=== PATIENT | female | born 1960 | race American Indian/Alaskan Native ===

== ENCOUNTER 2016-11-21 13:18 | Outpatient (CLI) | payer BC ==
--- NOTE | 2016-11-22 11:36 | Mammography Report ---
BILATERAL DIGITAL SCREENING MAMMOGRAM with CAD: 11/21/16 13:18:00 CLINICAL: Routine screening. COMPARISON:11/17/15 FINDINGS: The breasts are almost entirely fatty. No mass, architectural distortion or suspicious calcifications. IMPRESSION: No mammographic evidence of malignancy. BI-RADS CATEGORY: 1 - - Negative RECOMMENDATION: Routine mammographic screening in one year. COMMENT: Patient follow-up letters are generated by our [employer] application.
== END 2016-11-21 13:19 | disposition home or self-care (01) ==
LOC: SPVWC 13:18
PROVIDERS: ATTEND Obstetrics & Gynecology
DX: Z12.31 Encounter for screening mammogram for malignant neoplasm of breast (principal)
CPT/HCPCS: 77067; G0202

== ENCOUNTER 2017-01-14 11:25 | Outpatient (CLI) | payer BC ==
--- NOTE | 2017-01-14 12:17 | XRay Report ---
PA and lateral chest: Focal atelectasis is present at the left base. Lungs otherwise appear generally clear and unremarkable. The mediastinal contour is grossly normal except for a mildly tortuous thoracic aorta. Except for mild thoracic spondylosis the bony and soft tissue structures are unremarkable. Impression: Normal study for age.
== END 2017-01-14 11:26 | disposition home or self-care (01) ==
LOC: XRAY 11:25
PROVIDERS: ATTEND Internal Medicine
DX: J15.8 Pneumonia due to other specified bacteria (principal); J98.11 Atelectasis; M47.894 Other spondylosis, thoracic region
CPT/HCPCS: 71020

== ENCOUNTER 2017-03-19 07:55 | Outpatient (CLI) | payer BC ==
--- NOTE | 2017-03-19 09:07 | XRay Report ---
LEFT SHOULDER: History: Left shoulder pain. Normal bone mineralization. Mild osteoarthritic changes are identified at the glenohumeral joint and acromioclavicular joint. No evidence for fracture, dislocation, bone lesion or ligamentous injury. The soft tissues are within normal limits. IMPRESSION: Mild osteoarthritis.
--- NOTE | 2017-03-19 09:08 | XRay Report ---
LEFT KNEE, 2 views: History: Left knee pain. Normal bone mineralization. Mild to moderate osteoarthritic changes are identified in the medial compartment and patellofemoral space. There is relative sparing of the lateral compartment. No fracture, bone lesion or osteochondral defect is appreciated. A small joint effusion is suspected on the lateral image. IMPRESSION: Osteoarthritic changes. Small joint effusion.
== END 2017-03-19 07:56 | disposition home or self-care (01) ==
LOC: XRAY 07:55
PROVIDERS: ATTEND Nurse Practitioner Family
DX: M19.012 Primary osteoarthritis, left shoulder (principal); M25.462 Effusion, left knee

== ENCOUNTER 2017-03-21 07:17 | Outpatient (CLI) | payer BC ==
--- NOTE | 2017-03-21 09:39 | Cat Scan Report ---
CT HEAD WITHOUT CONTRAST INDICATION: Unspecified fall. COMPARISON: None similar. FINDINGS: Noncontrast head CT demonstrates symmetric, age-appropriate ventricles and sulci. Moderate to severe periventricular and white matter hypodensities noted. No definite acute infarct, hemorrhage, mass effect or midline shift. No abnormal extra-axial fluid collections. Posterior fossa structures and basilar cisterns appear within normal limits. Normal imaged eye globes. Slight bilateral maxillary sinus mucosal thickening inferomedially. Mild bilateral mastoiditis as well. Clear remainder imaged paranasal sinuses. Intact calvarium and scalp. Hyperostosis frontalis interna. Mild atherosclerotic internal carotid artery calcifications. CONCLUSION: 1. No acute intracranial CT abnormality with age-appropriate atrophy and extensive microvascular changes. 2. Few other findings, as above. Thank you for the opportunity to participate in this patient's care.
== END 2017-03-21 07:18 | disposition home or self-care (01) ==
LOC: CT 07:17
PROVIDERS: ATTEND Nurse Practitioner Family
DX: G31.89 Other specified degenerative diseases of nervous system (principal); H70.93 Unspecified mastoiditis, bilateral; I25.10 Atherosclerotic heart disease of native coronary artery without angina pectoris; W19.XXXA Unspecified fall, initial encounter; Y93.89 Activity, other specified; Y92.89 Other specified places as the place of occurrence of the external cause; Y99.8 Other external cause status
CPT/HCPCS: 70450

== ENCOUNTER 2018-04-08 12:37 | Outpatient (CLI) | payer OTHER ==
--- NOTE | 2018-04-09 10:26 | Mammography Report ---
BILATERAL DIGITAL SCREENING MAMMOGRAM with CAD: 04/08/18 12:37:00 CLINICAL: Routine screening. COMPARISON:11/21/16 FINDINGS: The breasts are almost entirely fatty. No mass, architectural distortion or suspicious calcifications. IMPRESSION: No mammographic evidence of malignancy. BI-RADS CATEGORY: 1 - - Negative RECOMMENDATION: Routine mammographic screening in one year. COMMENT: Patient follow-up letters are generated by our [employer] application.
== END 2018-04-08 12:38 | disposition home or self-care (01) ==
LOC: SPVWC 12:37
PROVIDERS: ATTEND Obstetrics & Gynecology
DX: Z12.31 Encounter for screening mammogram for malignant neoplasm of breast (principal); I10 Essential (primary) hypertension; Z90.710 Acquired absence of both cervix and uterus
CPT/HCPCS: 77067

== ENCOUNTER 2019-05-10 08:05 | Outpatient (CLI) | payer OTHER ==
--- NOTE | 2019-05-10 13:09 | Mammography Report ---
BILATERAL DIGITAL SCREENING MAMMOGRAM WITH CAD INDICATION: Routine screening mammography. TECHNIQUE: Digital bilateral 2D mammography was obtained in the craniocaudal and mediolateral obliq ue projections. This examination was interpreted with the benefit of Computer-Aided Detection analysi s. COMPARISON: 04/08/2018 FINDINGS: Breast Density: The breasts are almost entirely fatty. There is no evidence of dominant mass, suspicious calcifications or architectural distortion in eith er breast. IMPRESSION:No mammographic evidence of malignancy. BI-RADS Category 1: Negative. No mammographic evidence of malignancy. Recommend routine screening m ammography in one year. A "normal" or negative report should not discourage follow up or biopsy of a clinically significant f inding. A written summary of these findings will be mailed to the patient. The patient will be entered into a mammography reporting system which will generate a reminder letter for the patient's next appointmen t at the appropriate interval. The [employer] recommends yearly mammograms starting at age 40 and continuing as l lucy as a woman is in good health. Breast MRI is recommended for women with an approximate 20-25% or greater lifetime risk of breast cancer, including women with a strong family history of breast or ova ofelia cancer or who have been treated for Hodgkin's disease. Signer Name: Dickson Collins MD Signed: 05/10/2019 1:05 PM Workstation Name: [id number]
== END 2019-05-10 08:06 | disposition home or self-care (01) ==
LOC: SPVWC 08:05
PROVIDERS: ATTEND Obstetrics & Gynecology
DX: Z12.31 Encounter for screening mammogram for malignant neoplasm of breast (principal); I10 Essential (primary) hypertension; Z90.710 Acquired absence of both cervix and uterus
CPT/HCPCS: 77067